=== PATIENT | male | born 1975 | race Hispanic/Latino ===

== ENCOUNTER 2020-05-05 10:44 | Emergency (ER) | payer OTHER ==
[~2020-05-05 10:44] MED LIST: ALPR2TAB2 PO; LISI30TA4 PO; METF-444 PO; ROSU10TA22 PO
[2020-05-05] MEDS ORDERED: ASPIRIN 325 MG TABLET ONE (11:04)
[2020-05-05 11:15] LABS: BASOPHILS % (AUTO) 0.3 % (0.0-5.0); EOSINOPHILS % (AUTO) 0.8 % (0.0-8.0); HEMATOCRIT 52.2 % (42-54); LYMPHOCYTES % (AUTO) 23.3 % (21.0-51.0); MEAN CORPUSCULAR HEMOGLOBIN 30.5 pg (27.0-33.0); MEAN CORPUSCULAR HGB CONC 36.4 g/dL (32.0-36.0); MEAN CORPUSCULAR VOLUME 83.9 fL (79-99); MONOCYTES % (AUTO) 7.4 % (3.0-13.0); NEUTROPHILS % (AUTO) 67.8 % (40.0-77.0); PLATELET COUNT (AUTO) 204 K/uL (130-400); RED BLOOD CELL COUNT(AUTO) 6.22 MIL/uL (4.50-6.20); RED CELL DISTRIBUTION WIDTH 13.2 % (11.0-15.5); WHITE BLOOD COUNT (AUTO) 7.9 K/uL (4.8-10.8)
[2020-05-05 11:24] LABS: CREATININE 0.7 mg/dL (0.5-1.5); POTASSIUM 3.5 mmol/L (3.5-5.1)
[2020-05-05 11:28] LABS: BILIRUBIN,TOTAL 1.1 mg/dL (0.2-1.0); TOTAL PROTEIN, SERUM 7.6 g/dL (6.0-8.3)
== END 2020-05-05 11:53 ==
LOC: EEVIPCON 10:44 → EDH 10:44
DX: R07.89 Other chest pain (principal); I50.9 Heart failure, unspecified; F41.9 Anxiety disorder, unspecified; E11.9 Type 2 diabetes mellitus without complications; E78.5 Hyperlipidemia, unspecified; I10 Essential (primary) hypertension; Z72.0 Tobacco use
CPT/HCPCS: 36415; 71045; 80053; 82550; 84484; 85025; 93005

== ENCOUNTER 2022-05-15 19:47 | Emergency (ER) | payer OTHER ==
[~2022-05-15] VITALS: Ht 177.8 cm; Wt 73.9 kg
[2022-05-15 20:20] VITALS: BP 102/66
== END 2022-05-15 21:16 | disposition left against medical advice (07) ==
LOC: EDH 19:47
DX: M25.511 Pain in right shoulder (principal); Z53.21 Procedure and treatment not carried out due to patient leaving prior to being seen by health care provider

== ENCOUNTER 2024-07-01 00:59 | Emergency (ER) | payer BC ==
[~2024-07-01] VITALS: Ht 177.8 cm; Wt 74.8 kg
[2024-07-01] MEDS: ketOROlac 30MG VIAL (30MG/ML) IM ONE (01:32)
--- NOTE | 2024-07-01 01:37 | ERN ---
ED Note History of Present Illness Stated Complaint: C/O PAIN W/SWELLING TO LEFT 2ND TOE Chief Complaint: Toe Pain/Injury Time Seen by MD: 01:10 Time Seen by Midlevel: 01:10 Dictation: The patient is a 49-year-old male with a history of diabetes on metformin, hypertension, CAD with two stents who presents to the emergency department with complaints of left 2nd toe redness onset one month ago. Patient denies any trauma. Denies any fevers. Allergies: Coded Allergies: No Known Drug Allergies (Verified Allergy, 03/16/12) Home Meds Reported Medications Alprazolam (Xanax) 2 Mg Tablet, 2 MG PO TID, TAB 11/11/14 Lisinopril (Lisinopril) 30 Mg Tablet, 30 MG PO DAILY, TAB 11/11/14 Rosuvastatin Calcium (Crestor) 10 Mg Tablet, 10 MG PO DAILY, TAB 11/11/14 Metformin HCl (Metformin HCl) 500 Mg Tablet, 500 MG PO BID, TAB 11/11/14 Past Medical History Past Medical History: Diabetes-Type II, High Cholesterol, Heart Disease, Hypertension Surgical History: Other Surgical History Other: CARDIAC STENTS (2014) RN Note Reviewed/Agreed w/PFSH: Yes Review of System Dictation Constitutional: Negative for fever,chills, and weight loss Eyes: Negative for injury, pain,redness, and discharge ENT: Negative for injury,pain or swelling Cardiovascular: Negative for chest pain, palpitations, and edema Respiratory: Negative for shortness of breath, cough, and wheezing, Abdomen/GI: Negative for abdominal pain, nausea, vomiting, diarrhea, and constipation Back: Negative for injury and pain : Negative for injury, bleeding and discharge MS/Extremity: Positive for left 2nd toe pain, redness Skin: Negative for rash, and discoloration Neuro: Negative for headache, weakness, numbness, tingling, and seizure Psych: Negative for suicide ideation, homicidal ideation, and hallucinations Initial Vital Sign VS Vital Signs Date Time Temp Pulse Resp B/P (MAP) Pulse Ox O2 Delivery O2 Flow Rate FiO2 07/01/24 01:00 97.5 71 18 130/83 97 Room Air Physical Exam Dictation Vital Signs reviewed General Appearance: Alert, oriented x 3, no acute distress, well developed, nourished. Head and Face: non-traumatic. Eyes: PERRL, pink conjunctivas, eyelid no trauma, anterior chamber with arcus senilis. Ears: Pinnas intact and no signs of trauma or erythema ear canals clear and no discharge TM no erythema Nose: No discharge, no bleeding. Oropharynx: Mouth normal, tongue pink. pharynx clear,no erythema, tonsils no exudates, no abscesses noted, mucous membrane moist Neck: Supple, non-tender, no thyromegaly, no masses, no JVD, no bruits Breast:Deferred Chest:No tenderness, no crepitus, no paradoxical movement, no retractions Lungs:Clear, well-ventilated, symmetric, no rales, no wheezing, no rhonchi, no stridor, good breath sounds bilaterally Heart: Regular rate, regular rhythm, no murmur, no gallops Vascular: no peripheral edema, Abdomen: Soft, positive bowel sounds, nondistended, no guarding, nontender, no rebound, no masses no hepatomegaly, no splenomegaly, no Meek's sign, no hernias. Rectal: Deferred Genital: Deferred Neurological: Normal speech, motor function intact, sensory function intact Musculoskeletal: Neck nontender, full range of motion, back nontender, full range of motion, Extremities: nontender, full range of motion , left 2nd toe with erythema, no deformities, tender to touch, warmth Skin: Color pink, dry, no turgor, no rash, no lacerations, no abrasions, no contusions. Diabetic ulcer noted to second left toe about1 cm in diameter, no drainage Lymphatic: Deferred Results (Laboratory/Radiology) Laboratory/Radiology Laboratory Tests Test 07/01/24 01:44 White Blood Count 5.9 K/uL (4.8-10.8) Red Blood Count 5.48 MIL/uL (4.50-6.20) Hemoglobin 16.1 g/dL (14.0-18.0) Hematocrit 45.8 % (42-54) Mean Corpuscular Volume 83.6 fL (79-99) Mean Corpuscular Hemoglobin 29.4 pg (27.0-33.0) Mean Corpuscular Hemoglobin Concent 35.2 g/dL (32.0-36.0) Red Cell Distribution Width 12.7 % (11.0-15.5) Platelet Count 202 K/uL (130-400) Mean Platelet Volume 8.9 fL (7.5-10.5) Immature Granulocyte % (Auto) 0.0 % (0-1) Neutrophils (%) (Auto) 57.9 % (40.0-77.0) Lymphocytes (%) (Auto) 33.8 % (21.0-51.0) Monocytes (%) (Auto) 7.1 % (3.0-13.0) Eosinophils (%) (Auto) 1.0 % (0.0-8.0) Basophils (%) (Auto) 0.2 % (0.0-5.0) Neutrophils # (Auto) 3.4 K/uL (1.8-7.7) Lymphocytes # (Auto) 2.0 K/uL (1.0-4.8) Monocytes # (Auto) 0.4 K/uL (0.1-1.0) Eosinophils # (Auto) 0.06 K/uL (0.00-0.70) Basophils # (Auto) 0.01 K/uL (0.00-0.20) Absolute Immature Granulocyte (auto 0.00 K/uL (0-1) Nucleated Red Blood Cells 0.0 % (0.0-0.19) Erythrocyte Sedimentation Rate 2 MM/HR (0-20) Sodium Level 137 mmol/L (136-145) Potassium Level 3.8 mmol/L (3.5-5.1) Chloride Level 102 mmol/L (101-111) Carbon Dioxide Level 31 mmol/L (21-32) Blood Urea Nitrogen 12 mg/dL (7-18) Creatinine 0.6 mg/dL (0.5-1.3) Glomerular Filtration Rate Calc 118 mL/min (>90) Random Glucose 298 mg/dL (70-105) H Total Calcium 8.6 mg/dL (8.5-10.1) Labs Reviewed?: Yes ED Course ED Course Orders Procedure Category Date Status Time Toe(S) 2+Vws Lt RAD 07/01/24 Taken 01:14 Cbc With Differential LAB 07/01/24 Complete 01:14 Basic Metabolic Panel LAB 07/01/24 Complete 01:14 Erythrocyte LAB 07/01/24 Complete Sedimentation Rate 01:14 Ketorolac PHA 07/01/24 Complete Tromethamine 30mg/Ml 01:30 Insulin Regular, PHA 07/01/24 Complete Human 3ml (Humulin R 02:30 Current Medications Medications (Trade) Dose Ordered Sig/Flores Route PRN Reason Start Time Stop Time Status Last Admin Dose Admin Insulin Human Regular (humuLIN R 100 UNIT/ML 3ML) 7 unit ONCE ONCE SQ 07/01/24 02:30 07/01/24 02:31 DC Ketorolac Tromethamine (toRADol) 30 mg ONCE ONCE IM 07/01/24 01:30 07/01/24 01:31 DC 07/01/24 01:32 Vital Signs Date Time Temp Pulse Resp B/P (MAP) Pulse Ox O2 Delivery O2 Flow Rate FiO2 07/01/24 01:00 97.5 71 18 130/83 97 Room Air Medical Decision Making MDM The patient is a 49-year-old male with a history of diabetes on metformin, hypertension, CAD with two stents who presents to the emergency department with complaints of left 2nd toe redness onset one month ago. Patient denies any trauma. Denies any fevers. CBC showed no leukocytosis, no anemia, chemistry showed normal renal function, e levated blood glucose, not DKA. Patient received subcu insulin. Negative sed rate. X-ray reviewed with Dr. Daniels and showed no obvious fracture or dislocation, no obvious signs of osteomyelitis. Patient will be discharged with antibiotics to follow up with PCP. Differential diagnosis: Cellulitis, osteomyelitis, electrolyte imbalance, sepsis Need for hospitalization: Patient does not meet criteria for hospitalization. There are no social concerns with this patient. DX & DISP Disposition: Discharge Departure Impression: Primary Impression: Cellulitis of second toe, left Additional Impressions: Diabetic ulcer of toe, Uncontrolled diabetes mellitus with hyperglycemia Condition: Stable Scripts Sulfamethoxazole/Trimethoprim (Bactrim Ds Tablet) 800 Mg-160 Mg Tablet 1 TAB PO BID for 7 Days, #14 TAB 0 Refills Prov: CHUN NAVARRO [employer] 07/01/24 Additional Instructions: Please follow up with your primary doctor in 1-2 days. You might need a referral to a cra officer. Please take your antibiotics as prescribed. If symptoms worsen please return to ER. FOLLOW-UP WITH PRIMARY CARE PROVIDER IN 1 TO 2 DAYS. TAKE MEDICATIONS DIRECTED HERE IN THE EMERGENCY ROOM. OKAY TO CONTINUE HOME MEDICATIONS UNLESS OTHERWISE DISCUSSED DURING YOUR VISIT IN THE EMERGENCY ROOM TODAY. RETURN TO YOUR NEAREST EMERGENCY ROOM IF SYMPTOMS WORSEN OR IF THERE IS NO IMPROVEMENT. CALL 911 IF YOU NEED IMMEDIATE ASSISTANCE. TAKE TYLENOL OR MOTRIN [id number] NEEDED AND IF NO CONTRAINDICATIONS ARE PRESENT. INCREASE ORAL HYDRATION. A WOUND CULTURE OR URINE CULTURE WAS ORDERED HERE IN THE EMERGENCY ROOM DEPARTMENT PLEASE FOLLOW-UP WITH PRIMARY CARE PROVIDER AND ADVISE THEM TO GET REPEAT PORTS FROM OUR FACILITY. IF YOU HAD ANY ROD WRAP/SPLINTS THAT WERE APPLIED HERE, PLEASE DO NOT REMOVE THEM UNTIL YOU SEE YOUR PRIMARY CARE OR SPECIALTY. Referrals: LONDON ST MD (PCP) Time of Disposition: 03:09 I have reviewed the case, and I agree with, Diagnosis and Plan CHUN NAVARRO [facility] Jul 01, 2024 01:37
[2024-07-01 01:52] LABS: BASOPHILS # (AUTO) 0.01 K/uL (0.00-0.20); BASOPHILS % (AUTO) 0.2 % (0.0-5.0); EOSINOPHILS # (AUTO) 0.06 K/uL (0.00-0.70); HEMATOCRIT 45.8 % (42-54); LYMPHOCYTES % (AUTO) 33.8 % (21.0-51.0); MEAN CORPUSCULAR HEMOGLOBIN 29.4 pg (27.0-33.0); MEAN CORPUSCULAR HGB CONC 35.2 g/dL (32.0-36.0); MEAN CORPUSCULAR VOLUME 83.6 fL (79-99); MONOCYTES # (AUTO) 0.4 K/uL (0.1-1.0); MONOCYTES % (AUTO) 7.1 % (3.0-13.0); NEUTROPHILS # (AUTO) 3.4 K/uL (1.8-7.7); NEUTROPHILS % (AUTO) 57.9 % (40.0-77.0); PLATELET COUNT (AUTO) 202 K/uL (130-400); RED BLOOD CELL COUNT(AUTO) 5.48 MIL/uL (4.50-6.20); RED CELL DISTRIBUTION WIDTH 12.7 % (11.0-15.5); WHITE BLOOD COUNT (AUTO) 5.9 K/uL (4.8-10.8)
[2024-07-01 01:59] LABS: CREATININE 0.6 mg/dL (0.5-1.3); POTASSIUM 3.8 mmol/L (3.5-5.1)
[2024-07-01 03:07] LABS: ERYTHROCYTE SEDIMENTATION RATE 2 MM/HR (0-20)
[2024-07-01] MEDS ORDERED: SULF1TAB42 PO (03:12)
[2024-07-01] MEDS: cefTRIAXone 1G VIAL IV ONE (03:17)
[2024-07-01] MEDS: INSULIN humuLIN R 100 UNIT/ML 3ML SQ ONE (03:17)
[2024-07-01 03:39] VITALS: BP 126/78; PULSE 68; RESP 16; TEMP 97.8; O2SAT 98
--- NOTE | 2024-07-01 09:23 | HMCIMG ---
TOE(S) 2+VWS LT HISTORY: Cellulitis COMPARISON: None TECHNIQUE: 3 images of left second toe were obtained. FINDINGS: Soft tissue swelling is seen may be related to cellulitis. There is subluxation of the second distal interphalangeal joint. There is no acute displaced fracture or dislocation. Degenerative changes are seen. IMPRESSION: 1. Findings as described above.
== END 2024-07-01 03:41 | disposition home or self-care (01) ==
LOC: EDH 00:59
DX: L03.032 Cellulitis of left toe (principal); E11.621 Type 2 diabetes mellitus with foot ulcer; L97.529 Non-pressure chronic ulcer of other part of left foot with unspecified severity; E11.65 Type 2 diabetes mellitus with hyperglycemia; E78.00 Pure hypercholesterolemia, unspecified; I10 Essential (primary) hypertension; Z79.84 Long term (current) use of oral hypoglycemic drugs; Z79.899 Other long term (current) drug therapy; Z95.5 Presence of coronary angioplasty implant and graft
CPT/HCPCS: 99284; 96374; 80048; 85025; 85651; 36415; 73660; 96372 ×2; J1815; J0696; J1885

== ENCOUNTER 2024-09-07 00:26 | Emergency (ER) | payer SELFPAY ==
[~2024-09-07] VITALS: Ht 177.8 cm; Wt 83.0 kg
[~2024-09-07 00:26] MED LIST changes: +SULF1TAB42 PO
--- NOTE | 2024-09-07 01:32 | HMCIMG ---
FOOT COMP 3+VWS LT HISTORY: Osteomyelitis COMPARISON: None TECHNIQUE: 3 images of left foot were obtained. FINDINGS: Metatarsus valgus deformity is seen of the first toe. Amputation of second toe is seen. There is no acute displaced fracture or dislocation. Degenerative changes are seen. IMPRESSION: 1. Findings as described above.
[2024-09-07 01:54] LABS: BASOPHILS # (AUTO) 0.01 K/uL (0.00-0.20); BASOPHILS % (AUTO) 0.1 % (0.0-5.0); EOSINOPHILS # (AUTO) 0.24 K/uL (0.00-0.70); EOSINOPHILS % (AUTO) 3.3 % (0.0-8.0); HEMATOCRIT 41.3 % (42-54); IMMATURE GRANULOCYTE ABSOLUTE 0.02 K/uL (0-1); LYMPHOCYTES # (AUTO) 2.7 K/uL (1.0-4.8); LYMPHOCYTES % (AUTO) 36.6 % (21.0-51.0); MEAN CORPUSCULAR HEMOGLOBIN 29.9 pg (27.0-33.0); MEAN CORPUSCULAR HGB CONC 35.4 g/dL (32.0-36.0); MEAN CORPUSCULAR VOLUME 84.5 fL (79-99); MONOCYTES # (AUTO) 0.6 K/uL (0.1-1.0); MONOCYTES % (AUTO) 7.5 % (3.0-13.0); NEUTROPHILS # (AUTO) 3.9 K/uL (1.8-7.7); NEUTROPHILS % (AUTO) 52.2 % (40.0-77.0); PLATELET COUNT (AUTO) 220 K/uL (130-400); RED BLOOD CELL COUNT(AUTO) 4.89 MIL/uL (4.50-6.20); RED CELL DISTRIBUTION WIDTH 13.1 % (11.0-15.5); WHITE BLOOD COUNT (AUTO) 7.4 K/uL (4.8-10.8)
[2024-09-07 02:02] LABS: CREATININE 0.7 mg/dL (0.5-1.3); POTASSIUM 4.4 mmol/L (3.5-5.1)
[2024-09-07] MEDS: ketOROlac 15MG/ML VIAL (15MG/ML) IV ONE (02:33)
[2024-09-07] MEDS: cefTRIAXone 1G VIAL IVPB ONE (02:33)
[2024-09-07] MEDS: INSULIN humuLIN R 100 UNIT/ML 3ML IV ONE (02:34)
[2024-09-07] MEDS: 0.9%NACL 1000ML 1,000 ML IV ONE (02:34)
[2024-09-07 03:13] LABS: ERYTHROCYTE SEDIMENTATION RATE 9 MM/HR (0-20)
[2024-09-07] MEDS ORDERED: SULF1TAB42 PO (03:24)
--- NOTE | 2024-09-07 03:25 | ERN ---
General Chief Complaint: Lower Extremity Pain/Injury Stated Complaint: C/O PAIN AND SWELLING TO LEFT FOOT Time Seen by MD: 00:44 Time Seen by Midlevel: 00:44 Source: patient History of Present Illness Initial Comments Patient is a 49-year-old male with a past medical history of uncontrolled diabetes and hypertension presenting to the emergency department with pain and swelling to his left foot that has been ongoing for the last couple of days but worsened today. Patient reports having a 2nd toe amputation of the left foot on July 20, 2024. He denies any fever, chills, or any other symptoms at this time. He states his fasting blood sugar is over 200 normally. He was supposed to be taking medications for his diabetes but states he was noncompliant. Patient gives no reason for his noncompliance. Allergies: Coded Allergies: No Known Drug Allergies (Verified Allergy, 03/16/12) Home Meds Active Scripts Sulfamethoxazole/Trimethoprim (Bactrim Ds Tablet) 800 Mg-160 Mg Tablet, 1 TAB PO BID for 7 Days, #14 TAB 0 Refills Prov:GORDON AGUILA 09/07/24 Sulfamethoxazole/Trimethoprim (Bactrim Ds Tablet) 800 Mg-160 Mg Tablet, 1 TAB PO BID for 7 Days, #14 TAB 0 Refills Prov:CHUN NAVARRO 07/01/24 Reported Medications Alprazolam (Xanax) 2 Mg Tablet, 2 MG PO TID, TAB 11/11/14 Lisinopril (Lisinopril) 30 Mg Tablet, 30 MG PO DAILY, TAB 11/11/14 Rosuvastatin Calcium (Crestor) 10 Mg Tablet, 10 MG PO DAILY, TAB 11/11/14 Metformin HCl (Metformin HCl) 500 Mg Tablet, 500 MG PO BID, TAB 11/11/14 Past Medical History Past Medical History: Diabetes-Type II, High Cholesterol, Heart Disease, Hypertension Past Surgical History: Other Surgical History Other: LEFT FOOT 2ND TOE AMPUTATION (07/20/2024) ROS Dictation CONSTITUTIONAL: Negative except for HPI HEAD/FACE: Negative except for HPI EENT: Negative except for HPI RESPIRATORY: Negative except for HPI GASTROINTESTINAL/ABDOMINAL: Negative except for HPI GENITOURINARY: Negative except for HPI MUSCULOSKELETAL: Negative except for HPI INTEGUMENTARY: Negative except for HPI NEUROLOGICAL/PSYCH: Negative except for HPI HEMATOLOGIC/LYMPHATIC: Negative except for HPI All Systems Negative, Except as noted above. 13 point review of systems assessed and all negative except for above. Physical Exam Physical Exam Dictation Vital Signs reviewed General Appearance: Alert, oriented x 3, no acute distress, well developed, nourished. Head and Face: non-traumatic. Eyes: PERRL, pink conjunctivas, eyelid no trauma, anterior chamber with arcus senilis. Ears: Pinnas intact and no signs of trauma or erythema ear canals clear and no discharge TM no erythema Nose: No discharge, no bleeding. Oropharynx: Mouth normal, tongue pink, pharynx clear,no erythema, tonsils no exudates, no abscesses noted, mucous membrane moist Neck: Supple, non-tender, no thyromegaly, no masses, no JVD, no bruits Breast:Deferred Chest:No tenderness, no crepitus, no paradoxical movement, no retractions Lungs:Clear, well-ventilated, symmetric, no rales, no wheezing, no rhonchi, no stridor, good breath sounds bilaterally Heart: Regular rate, regular rhythm, no murmur, no gallops Vascular: no peripheral edema, Abdomen: Soft, positive bowel sounds, nondistended, no guarding, nontender, no rebound, no masses no hepatomegaly, no splenomegaly, no Meek's sign, no hernias. Rectal: Deferred Genital: Deferred Neurological: Normal speech, motor function intact, sensory function intact Musculoskeletal: Neck nontender, full range of motion, back nontender, full range of motion, Extremities: Mild swelling and erythema to the left foot, pulses intact, no drainable abscess at this time Skin: Color pink, dry, no turgor, no rash, no lacerations, no abrasions, no contusions. Lymphatic: Deferred Results Laboratory and Microbiology Lab and Micro Result Laboratory Tests Test 09/07/24 01:33 09/07/24 02:58 White Blood Count 7.4 K/uL (4.8-10.8) Red Blood Count 4.89 MIL/uL (4.50-6.20) Hemoglobin 14.6 g/dL (14.0-18.0) Hematocrit 41.3 % (42-54) L Mean Corpuscular Volume 84.5 fL (79-99) Mean Corpuscular Hemoglobin 29.9 pg (27.0-33.0) Mean Corpuscular Hemoglobin Concent 35.4 g/dL (32.0-36.0) Red Cell Distribution Width 13.1 % (11.0-15.5) Platelet Count 220 K/uL (130-400) Mean Platelet Volume 8.9 fL (7.5-10.5) Immature Granulocyte % (Auto) 0.3 % (0-1) Neutrophils (%) (Auto) 52.2 % (40.0-77.0) Lymphocytes (%) (Auto) 36.6 % (21.0-51.0) Monocytes (%) (Auto) 7.5 % (3.0-13.0) Eosinophils (%) (Auto) 3.3 % (0.0-8.0) Basophils (%) (Auto) 0.1 % (0.0-5.0) Neutrophils # (Auto) 3.9 K/uL (1.8-7.7) Lymphocytes # (Auto) 2.7 K/uL (1.0-4.8) Monocytes # (Auto) 0.6 K/uL (0.1-1.0) Eosinophils # (Auto) 0.24 K/uL (0.00-0.70) Basophils # (Auto) 0.01 K/uL (0.00-0.20) Absolute Immature Granulocyte (auto 0.02 K/uL (0-1) Nucleated Red Blood Cells 0.0 % (0.0-0.19) Erythrocyte Sedimentation Rate 9 MM/HR (0-20) Sodium Level 139 mmol/L (136-145) Potassium Level 4.4 mmol/L (3.5-5.1) Chloride Level 102 mmol/L (101-111) Carbon Dioxide Level 31 mmol/L (21-32) Blood Urea Nitrogen 12 mg/dL (7-18) Creatinine 0.7 mg/dL (0.5-1.3) Glomerular Filtration Rate Calc 112 mL/min (>90) Random Glucose 376 mg/dL (70-105) H Lactic Acid Level 1.8 mmol/L (0.8-2.5) Total Calcium 8.8 mg/dL (8.5-10.1) Procalcitonin < 0.05 ng/mL (0.05-0.5) L Whole Blood Glucose 182 MG/DL (70-110) H Bedside Glucose Comment Notified Nurse Labs Reviewed?: Yes MDM MDM: Patient is a 49-year-old male with a past medical history of uncontrolled diabetes and hypertension presenting to the emergency department with pain and swelling to his left foot that has been ongoing for the last couple of days but worsened today. Patient reports having a 2nd toe amputation of the left foot on July 20, 2024. He denies any fever, chills, or any other symptoms at this time. He states his fasting blood sugar is over 200 normally. He was supposed to be taking medications for his diabetes but states he was noncompliant. Patient gives no reason for his noncompliance. Physical examination the patient was in no acute distress. Initial vital signs are stable. Patient is afebrile. There is some mild amount of swelling to the dorsal aspect of the left foot. There is small amounts of erythema. Foot is warm to touch. It appears the patient may be developing a cellulitis. His CBC was obtained which shows no leukocytosis. Chemistries are stable but do reveal a random glucose of 376. The patient was given IV fluids and 5 units of regular insulin. Blood glucose improved to 182. Lactic acid and procalcitonin are negative. Sed rate is normal. X-ray does not show any evidence of osteomyelitis or any other acute abnormality. Patient was given antibiotics and pain medication in the emergency department and will be discharged home prescription for Bactrim to prevent a worsening cellulitis. Differential diagnosis: Uncontrolled diabetes, DKA, cellulitis, osteomyelitis There are no social concerns with this patient. Prescription drug management Prescriptions will include: Bactrim Medical management and examination interpretation discussions were had by me with other qualified healthcare professionals as indicated for the patient's care. ED Course Orders Procedure Category Date Status Time Cbc With Differential LAB 09/07/24 Complete 00:44 Basic Metabolic Panel LAB 09/07/24 Complete 00:44 Erythrocyte LAB 09/07/24 Complete Sedimentation Rate 00:44 Procalcitonin LAB 09/07/24 Complete 00:44 Lactic Acid LAB 09/07/24 Complete 00:44 Foot Comp 3+Vws Lt RAD 09/07/24 Resulted 00:44 0.9%Nacl 1000ml (Ns PHA 09/07/24 Complete 1000ml) 02:30 Insulin Regular, PHA 09/07/24 Complete Human 3ml (Humulin R 02:30 Ceftriaxone 1g Vial PHA 09/07/24 Complete (Rocephine 1g Inj) 02:30 Ketorolac PHA 09/07/24 Complete Tromethamine 15mg/Ml 02:30 Current Medications Medications (Trade) Dose Ordered Sig/Flores Route PRN Reason Start Time Stop Time Status Last Admin Dose Admin Ceftriaxone Sodium (ROCEphine 1G INJ) 1 gm ONCE ONCE IVPB 09/07/24 02:30 09/07/24 02:31 DC 09/07/24 02:33 Insulin Human Regular (humuLIN R 100 UNIT/ML 3ML) 5 unit ONCE ONCE IV 09/07/24 02:30 09/07/24 02:31 DC 09/07/24 02:34 Ketorolac Tromethamine (toRADol) 15 mg ONCE ONCE IV 09/07/24 02:30 09/07/24 02:31 DC 09/07/24 02:33 Sodium Chloride 1,000 ml @ 0 mls/hr ONCE ONCE IV 09/07/24 02:30 09/07/24 02:31 DC 09/07/24 02:34 Vital Signs Date Time Temp Pulse Resp B/P (MAP) Pulse Ox O2 Delivery O2 Flow Rate FiO2 09/07/24 02:27 98.1 75 18 117/65 99 Room Air* 0 21 09/07/24 00:28 97.9 72 20 117/83 96 [address] [id number] IMAGING REPORT Signed PATIENT: BRUCE MCGEE MR#: [id number] : 1975 SEX: M AGE: 49 LOCATION: [facility] ORDER STATUS: REG ER REPORT#: [id number] SERVICE [id number] REASON: r/o osteo ORDERING PHYSICIAN: GORDON AGUILA PROCEDURE: FT 3VW LT - FOOT COMP 3+VWS LT FOOT COMP 3+VWS LT HISTORY: Osteomyelitis COMPARISON: None TECHNIQUE: 3 images of left foot were obtained. FINDINGS: Metatarsus valgus deformity is seen of the first toe. Amputation of second toe is seen. There is no acute displaced fracture or dislocation. Degenerative changes are seen. IMPRESSION: 1. Findings as described above. DICTATED BY: MIGUEL DE LA VEGA MD DATE: 09/07/24127 ELECTRONICALLY SIGNED BY: MIGUEL DE LA VEGA MD DATE: 09/07/24 0132 DX & DISP Disposition: Discharge Departure Impression: Primary Impression: Uncontrolled diabetes mellitus with hyperglycemia Additional Impression: Cellulitis of left foot Condition: Stable Scripts Sulfamethoxazole/Trimethoprim (Bactrim Ds Tablet) 800 Mg-160 Mg Tablet 1 TAB PO BID for 7 Days, #14 TAB 0 Refills Prov: GORDON AGUILA 09/07/24 Additional Instructions: Your blood work today is stable. Your blood glucose was over 350. It appears you may be starting an infection in your left foot. You were given IV antibiotics and pain medication in the emergency department. Your sugar was also controlled in the emergency department. I have given you a prescription for antibiotics for outpatient management. If you notice an increase in redness, swelling, and pain to the area please follow up with your primary care doctor or return to the ER further evaluation. Referrals: LONDON ST MD (PCP) Time of Disposition: 03:23 I have reviewed the case, and I agree with, Diagnosis and Plan I performed the substantive portion of the visit. I have reviewed and personally made and approve the management plan that is documented in the note by myself or the VIV. I acknowledge for responsibility for the patient's management plan. GORDON AGUILA Sep 07, 2024 03:25
[2024-09-07 03:32] VITALS: BP 121/65; PULSE 72; RESP 18; TEMP 98.5; O2SAT 96
== END 2024-09-07 03:33 | disposition home or self-care (01) ==
LOC: EDH 00:26
DX: L03.116 Cellulitis of left lower limb (principal); E11.65 Type 2 diabetes mellitus with hyperglycemia; E78.00 Pure hypercholesterolemia, unspecified; I11.9 Hypertensive heart disease without heart failure; Z79.84 Long term (current) use of oral hypoglycemic drugs; Z79.899 Other long term (current) drug therapy; Z98.890 Other specified postprocedural states
CPT/HCPCS: 99284; 96365; 96375; 80048; 85025; 85651; 82948; 83605; 36415; 73630; 84145; J1815; J1885; J7030; J0696

== ENCOUNTER 2024-09-11 11:17 | Emergency (ER) | payer OTHER ==
[~2024-09-11] VITALS: Ht 177.8 cm; Wt 83.9 kg
[2024-09-11 11:45] LABS: BASOPHILS # (AUTO) 0.01 K/uL (0.00-0.20); BASOPHILS % (AUTO) 0.2 % (0.0-5.0); EOSINOPHILS # (AUTO) 0.06 K/uL (0.00-0.70); EOSINOPHILS % (AUTO) 1.2 % (0.0-8.0); HEMATOCRIT 43.4 % (42-54); IMMATURE GRANULOCYTE ABSOLUTE 0.01 K/uL (0-1); LYMPHOCYTES # (AUTO) 1.5 K/uL (1.0-4.8); LYMPHOCYTES % (AUTO) 31.2 % (21.0-51.0); MEAN CORPUSCULAR HEMOGLOBIN 29.3 pg (27.0-33.0); MEAN CORPUSCULAR HGB CONC 34.8 g/dL (32.0-36.0); MEAN CORPUSCULAR VOLUME 84.1 fL (79-99); MONOCYTES # (AUTO) 0.3 K/uL (0.1-1.0); MONOCYTES % (AUTO) 6.9 % (3.0-13.0); NEUTROPHILS # (AUTO) 2.9 K/uL (1.8-7.7); NEUTROPHILS % (AUTO) 60.3 % (40.0-77.0); PLATELET COUNT (AUTO) 206 K/uL (130-400); RED BLOOD CELL COUNT(AUTO) 5.16 MIL/uL (4.50-6.20); RED CELL DISTRIBUTION WIDTH 13.2 % (11.0-15.5); WHITE BLOOD COUNT (AUTO) 4.8 K/uL (4.8-10.8)
--- NOTE | 2024-09-11 11:46 | ERN ---
General Chief Complaint: Abdominal Pain Stated Complaint: NVD Time Seen by MD: 11:19 Source: patient History of Present Illness Initial Comments Patient is a 49-year-old male coming in to be evaluated for discomfort. Patient states the symptoms began a couple of days ago. He also states that he has a history of cardiac issues in the past. Allergies: Coded Allergies: No Known Drug Allergies (Verified Allergy, 03/16/12) Home Meds Active Scripts Sulfamethoxazole/Trimethoprim (Bactrim Ds Tablet) 800 Mg-160 Mg Tablet, 1 TAB PO BID for 7 Days, #14 TAB 0 Refills Prov:GORDON AGUILA 09/07/24 Sulfamethoxazole/Trimethoprim (Bactrim Ds Tablet) 800 Mg-160 Mg Tablet, 1 TAB PO BID for 7 Days, #14 TAB 0 Refills Prov:CHUN NAVARRO H[employer] D[employer]ESS FEEDER 07/01/24 Reported Medications Alprazolam (Xanax) 2 Mg Tablet, 2 MG PO TID, TAB 11/11/14 Lisinopril (Lisinopril) 30 Mg Tablet, 30 MG PO DAILY, TAB 11/11/14 Rosuvastatin Calcium (Crestor) 10 Mg Tablet, 10 MG PO DAILY, TAB 11/11/14 Metformin HCl (Metformin HCl) 500 Mg Tablet, 500 MG PO BID, TAB 11/11/14 Past Medical History Past Medical History: CAD, Diabetes-Type II, High Cholesterol, Heart Disease, Hypertension Past Surgical History: Other Surgical History Other: LEFT FOOT 2ND TOE AMPUTATION (07/20/2024) ROS Dictation CONSTITUTIONAL: No chills, no fever, no weakness, no diaphoresis, no malaise. HEAD/FACE: No signs of trauma. EENT: No eye pain, no blurred vision, no tearing, no double vision, no ear pain, no ear discharge, no nose pain, no nasal congestion, no throat pain, no throat swelling, no mouth pain. RESPIRATORY: No cough, no orthopnea, no SOB, no stridor, no wheezing. CARDIOVASCULAR: No chest pain, no edema, no palpitations, no syncope. GASTROINTESTINAL/ABDOMINAL: No abdominal pain, no constipation, no diarrhea, no nausea, no vomiting. GENITOURINARY: No abnormal discharge, no dysuria, no frequent urination, no hematuria. No complaints of pain in the genitals. MUSCULOSKELETAL: No back pain, no gout, no joint pain, no joint swelling, no muscle pain, no muscle stiffness, no neck pain. INTEGUMENTARY: No change in color, no change in hair/nails, no dryness, no lesion, no lumps, no rash. NEUROLOGICAL/PSYCH: No anxiety, not depressed, no emotional problem, no headache, no numbness, no pre-existing deficit, no history of seizures, no tremors, no weakness. HEMATOLOGIC/LYMPHATIC: Not anemic, no history of blood clots, no apparent bleeding, no bruising, glands not swollen. All Systems Negative, Except as Noted. Physical Exam Physical Exam Dictation VITAL SIGNS: Reviewed. GENERAL APPEARANCE: Alert, oriented x3, no acute distress, obese. HEAD AND FACE: Non-traumatic. EYES: PERRL, pink conjunctivas, eyelid no trauma, anterior chamber clear. EARS: Pinnas intact and no signs of trauma or erythema. Ear canals clear and no discharge. TMs no erythema. NOSE: No discharge, no bleeding. OROPHARYNX: Mouth normal, teeth no caries, tongue pink. Pharynx clear, no erythema. Tonsils no exudates, no abscesses noted. Mucous membrane moist. NECK: Supple, non-tender, no thyromegaly, no masses, no JVD, no bruits. BREAST: Deferred. CHEST: No tenderness, no crepitus, no paradoxical movement, no retractions. LUNGS: Clear, well-ventilated, symmetric, no rales, no wheezing, no rhonchi, no stridor, good breath sounds bilaterally. HEART: Regular rate, regular rhythm, no murmur, no gallops. VASCULAR: No peripheral edema. ABDOMEN: Soft, positive bowel sounds, nondistended, no guarding, nontender, no rebound, no masses no hepatomegaly, no splenomegaly, no Meek's sign, no hernias. RECTAL: Deferred. GENITAL: Deferred. NEUROLOGICAL: Normal speech, gross motor function intact, gross sensory function intact. MUSCULOSKELETAL: Neck nontender, full range of motion, back nontender, full range of motion. EXTREMITIES: Nontender, full range of motion. SKIN: Color pink, dry, no turgor, no rash, no lacerations, no abrasions, no contusions. LYMPHATICS: Deferred. Results Laboratory and Microbiology Lab and Micro Result Laboratory Tests Test 09/11/24 11:37 09/11/24 12:50 White Blood Count 4.8 K/uL (4.8-10.8) Red Blood Count 5.16 MIL/uL (4.50-6.20) Hemoglobin 15.1 g/dL (14.0-18.0) Hematocrit 43.4 % (42-54) Mean Corpuscular Volume 84.1 fL (79-99) Mean Corpuscular Hemoglobin 29.3 pg (27.0-33.0) Mean Corpuscular Hemoglobin Concent 34.8 g/dL (32.0-36.0) Red Cell Distribution Width 13.2 % (11.0-15.5) Platelet Count 206 K/uL (130-400) Mean Platelet Volume 8.6 fL (7.5-10.5) Immature Granulocyte % (Auto) 0.2 % (0-1) Neutrophils (%) (Auto) 60.3 % (40.0-77.0) Lymphocytes (%) (Auto) 31.2 % (21.0-51.0) Monocytes (%) (Auto) 6.9 % (3.0-13.0) Eosinophils (%) (Auto) 1.2 % (0.0-8.0) Basophils (%) (Auto) 0.2 % (0.0-5.0) Neutrophils # (Auto) 2.9 K/uL (1.8-7.7) Lymphocytes # (Auto) 1.5 K/uL (1.0-4.8) Monocytes # (Auto) 0.3 K/uL (0.1-1.0) Eosinophils # (Auto) 0.06 K/uL (0.00-0.70) Basophils # (Auto) 0.01 K/uL (0.00-0.20) Absolute Immature Granulocyte (auto 0.01 K/uL (0-1) Nucleated Red Blood Cells 0.0 % (0.0-0.19) Prothrombin Time 11.4 SEC (9.6-11.6) Prothromb Time International Ratio 1.02 (0.85-1.15) Activated Partial Thromboplast Time 26.8 SEC (26.3-35.5) Sodium Level 142 mmol/L (136-145) Potassium Level 4.0 mmol/L (3.5-5.1) Chloride Level 103 mmol/L (101-111) Carbon Dioxide Level 33 mmol/L (21-32) H Blood Urea Nitrogen 14 mg/dL (7-18) Creatinine 0.8 mg/dL (0.5-1.3) Glomerular Filtration Rate Calc 108 mL/min (>90) Random Glucose 185 mg/dL (70-105) H Total Calcium 8.6 mg/dL (8.5-10.1) Magnesium Level 1.80 mg/dL (1.80-2.40) Total Creatine Kinase 74 U/L (21-232) Troponin I High Sensitivity 9 ng/L (4-75) B-Type Natriuretic Peptide 24 pg/mL (0-100) Urine Color YELLOW (YELLOW) Urine Appearance CLEAR (CLEAR) Urine pH 6.0 (5.0-8.0) Urine Specific [place] 1.030 (1.001-1.031) Urine Protein NEGATIVE mg/dL (NEGATIVE) Urine Glucose (UA) >=1000 mg/dL (NEGATIVE) H Urine Ketones NEGATIVE mg/dL (NEGATIVE) Urine Occult Blood NEGATIVE (NEGATIVE) Urine Nitrate NEGATIVE (NEGATIVE) Urine Bilirubin NEGATIVE mg/dL (NEGATIVE) Urine Urobilinogen 0.2 mg/dL (0.2-1.0) Urine Leukocyte Esterase 25 Merna/uL (NEGATIVE) H Urine RBC 0-1 /HPF (0-1) Urine WBC 2-5 /HPF (0-1) H Urine Squamous Epithelial Cells RARE /HPF (0-2) Urine Bacteria None /HPF (None Seen) Urine Opiates Screen NEGATIVE (NEGATIVE) Urine Barbiturates Screen NEGATIVE (NEGATIVE) Urine Phencyclidine Screen NEGATIVE (NEGATIVE) Urine Amphetamines Screen NEGATIVE (NEGATIVE) Urine Benzodiazepines Screen NEGATIVE (NEGATIVE) Urine Cocaine Screen POSITIVE (NEGATIVE) H Urine Marijuana (THC) Screen POSITIVE (NEGATIVE) H Labs Reviewed?: Yes EKG/XRAY/US/CT/MRI EKG Comment 09/11/2024 time 11:17 a.m. Ventricular rate 65 Sinus rhythm [place] [address] wave elevation or depression MDM MDM: Differential diagnosis: Chest pain, cocaine abuse, polysubstance abuse Patient is a 49-year-old male coming in to be evaluated for abdominal discomfort. Laboratory workup positive for cocaine and cannabis. Patient was given medication for chest discomfort states he feels better. Patient will be discharged in stable condition with a diagnosis of cocaine abuse. ED Course Orders Procedure Category Date Status Time 12 Lead Ekg Tracing- EKG 09/11/24 Complete Technical 11:18 Cbc With Differential LAB 09/11/24 Complete 11:21 Prothrombin Time With LAB 09/11/24 Complete INR 11:21 B-Type Natriuretic LAB 09/11/24 Complete Peptide 11:21 Chest 1vw RAD 09/11/24 Resulted 11:21 Magnesium LAB 09/11/24 Complete 11:21 Creatine Kinase, Total LAB 09/11/24 Complete 11:21 Troponin I High LAB 09/11/24 Complete Sensitivity 11:21 Urinalysis Profile LAB 09/11/24 Complete 11:21 Partial LAB 09/11/24 Complete Thromboplastin Time 11:21 Basic Metabolic Panel LAB 09/11/24 Complete 11:21 Aspirin 325mg Tab PHA 09/11/24 Complete (Aspirin 325mg Tab) 11:30 Drug Screen Urine LAB 09/11/24 Complete 11:21 Pantoprazole 40mg Inj PHA 09/11/24 Complete (Protonix 40mg Inj 11:30 Nitroglycerin 0.4mg PHA 09/11/24 In Process Sl Tab (Nitrostat) 13:00 Nitroglycerin 0.4mg PHA 09/11/24 Complete Sl Tab (Nitrostat) 12:48 Current Medications Medications (Trade) Dose Ordered Sig/Flores Route PRN Reason Start Time Stop Time Status Last Admin Dose Admin Aspirin (Aspirin 325mg Tab) 325 mg ONCE ONCE PO 09/11/24 11:30 09/11/24 11:31 DC 09/11/24 11:57 Nitroglycerin (Nitrostat) 0.4 mg AD PRN SL CHEST PAIN 09/11/24 13:00 10/11/24 12:59 09/11/24 12:57 Nitroglycerin (Nitrostat) 0.4 mg STK-MED ONCE SL 09/11/24 12:48 09/11/24 12:48 DC Pantoprazole Sodium (PROTonix 40MG INJ) 40 mg ONCE ONCE IVP 09/11/24 11:30 09/11/24 11:31 DC 09/11/24 11:57 Vital Signs Date Time Temp Pulse Resp B/P (MAP) Pulse Ox O2 Delivery O2 Flow Rate FiO2 09/11/24 12:58 99.0 72 16 114/73 99 Room Air* 0 21 09/11/24 11:19 99.0 75 16 121/73 98 Room Air 0 DX & DISP Disposition: Discharge Departure Impression: Primary Impression: Cocaine abuse Condition: Stable Additional Instructions: You have been reviewed in the emergency department at [facility] after presenting with chest pain. After considering your history, your risk factors, your EKG and your blood test troponins, have been found to be at very low risk less than (1 in 100) of having a major adverse cardiac event (like heart attack) in the near future. In the " low risk" group, the risks of doing further tests and treatment as the inpatient outweighs the benefits. In many patients in the low risk group for the test of any sort or unnecessary, however he should discuss this further with his general practitioner who will understand the medical and personal backgrounds better. Because we have never declared you" no risk" we would suggest. 1 returning for medical review if you have further episodes of chest pain/arm pain or other concerning symptoms like dizziness, collapse, palpitations or shortness of breath. 2. Following up with your local doctor who will consider the need for further testing and will also ensure that any modifiable risk factors you may have for heart disease are optimally managed. Patient will be discharged in stable condition at the moment discharge patient states , no chest pain Referrals: LONDON ST MD (PCP) Time of Disposition: 14:28 JIM ALEJANDRE MD Sep 11, 2024 11:46
[2024-09-11 11:55] LABS: CREATININE 0.8 mg/dL (0.5-1.3); INR 1.02 (0.85-1.15); PROTHROMBIN TIME 11.4 SEC (9.6-11.6)
[2024-09-11 11:56] LABS: PARTIAL THROMBOPLASTIN TIME 26.8 SEC (26.3-35.5)
[2024-09-11] MEDS: PANTOPrazole 40 MG/VIAL IVP ONE (11:57)
[2024-09-11] MEDS: ASPIRIN 325MG TAB PO ONE (11:57)
[2024-09-11 12:00] LABS: MAGNESIUM 1.8 mg/dL (1.80-2.40)
[2024-09-11 12:21] LABS: B-TYPE NATRIURETIC PEPTIDE 24 pg/mL (0-100)
--- NOTE | 2024-09-11 12:23 | HMCIMG ---
CHEST 1VW HISTORY: Chest pain COMPARISON: 05/05/2020 FINDINGS: A frontal projection of the chest was obtained. Prominent interstitial markings are seen with possible superimposed infiltrates. The heart is borderline enlarged. Degenerative changes are seen. No evidence of aortic calcification is seen. IMPRESSION: 1. Prominent interstitial markings are seen with possible superimposed infiltrates.
[2024-09-11] MEDS: NITROGLYCERIN 0.4 MG SL TAB SL PRN (12:49)
[2024-09-11] MEDS: NITROGLYCERIN 0.4 MG SL TAB SL ONE (12:49)
[2024-09-11 13:22] LABS: ADD UA MICROSCOPIC YES; APPEARANCE,URINE CLEAR (CLEAR); BILIRUBIN,URINE NEGATIVE (NEGATIVE); COLOR,URINE YELLOW (YELLOW); GLUCOSE, URINE (UA) >=1000 mg/dL (NEGATIVE); KETONES,URINE NEGATIVE (NEGATIVE); LEUKOCYTE ESTERASE ,URINE 25 Leu/uL (NEGATIVE); NITRATE,URINE NEGATIVE (NEGATIVE); OCCULT BLOOD,URINE NEGATIVE (NEGATIVE); PROTEIN,URINE NEGATIVE (NEGATIVE); UROBILINOGEN,URINE 0.2 mg/dL (0.2-1.0)
[2024-09-11 13:23] LABS: MUCUS,URINE RARE LPF (None Seen); RBC,URINE 0-1 /HPF (0-1); SQUAMOUS EPITHELIAL CELL,UR RARE /HPF (0-2)
[2024-09-11 13:26] LABS: AMPHET/METH SCREEN,URINE NEGATIVE (NEGATIVE); BARBITURATE SCREEN, URINE NEGATIVE (NEGATIVE); BENZODIAZEPINES SCREEN,URINE NEGATIVE (NEGATIVE); CANNABINOID SCREEN,URINE POSITIVE (NEGATIVE); COCAINE SCREEN,URINE POSITIVE (NEGATIVE); OPIATE SCREEN,URINE NEGATIVE (NEGATIVE); PHENCYCLIDINE SCREEN,URINE NEGATIVE (NEGATIVE)
--- NOTE | 2024-09-11 13:45 | EKG ---
[facility] Test Date: 2024-09-11 Test Time: 11:17:05 Pat Name: BRUCE MCGEE Department: ED Room: Gender: M Woods Warden: [id number] : 1975 Requested By: JIM ALEJANDRE Order Number: [id number] Reading MD: Alex Rosales Measurements Intervals [place] Rate: 65 P: -20 [place]: 176 QRS: 80 QRSD: 112 T: 83 QT: 408 QTc: 424 Interpretive Statements Sinus rhythm Nonspecific T abnormalities, lateral leads ST elev, probable normal early repol pattern Compared to ECG 05/05/2020 10:49:44 T-wave abnormality now present ST (T wave) deviation now present Myocardial infarct finding no longer present Electronically Signed On 09-11-2024 16:15:39 SENIOR TECHNICAL TRAINER by Alex Rosales Please click the below link to view image of tracing.
[2024-09-11 14:50] VITALS: BP 121/76; PULSE 70; RESP 16; TEMP 98.6; O2SAT 98
== END 2024-09-11 15:01 | disposition home or self-care (01) ==
LOC: EDH 11:17
DX: F14.10 Cocaine abuse, uncomplicated (principal); E11.9 Type 2 diabetes mellitus without complications; E78.00 Pure hypercholesterolemia, unspecified; I11.9 Hypertensive heart disease without heart failure; I21.9 Acute myocardial infarction, unspecified; I25.10 Atherosclerotic heart disease of native coronary artery without angina pectoris; Z79.84 Long term (current) use of oral hypoglycemic drugs; Z79.899 Other long term (current) drug therapy
CPT/HCPCS: 99285; 96374; 71045; 82550; 83735; 84484; 80048; 83880; 80305; 85025; 85610; 85730; 36415; 93005; 81001; J2470

== ENCOUNTER 2024-09-13 16:53 | Emergency (ER) | payer OTHER ==
[~2024-09-13] VITALS: Ht 175.3 cm; Wt 81.6 kg
[2024-09-13 20:06] LABS: BASOPHILS # (AUTO) 0.02 K/uL (0.00-0.20); BASOPHILS % (AUTO) 0.3 % (0.0-5.0); EOSINOPHILS # (AUTO) 0.19 K/uL (0.00-0.70); EOSINOPHILS % (AUTO) 2.8 % (0.0-8.0); HEMATOCRIT 46.6 % (42-54); IMMATURE GRANULOCYTE ABSOLUTE 0.01 K/uL (0-1); LYMPHOCYTES # (AUTO) 2.6 K/uL (1.0-4.8); LYMPHOCYTES % (AUTO) 39.1 % (21.0-51.0); MEAN CORPUSCULAR HEMOGLOBIN 29.4 pg (27.0-33.0); MEAN CORPUSCULAR HGB CONC 34.8 g/dL (32.0-36.0); MEAN CORPUSCULAR VOLUME 84.6 fL (79-99); MONOCYTES # (AUTO) 0.5 K/uL (0.1-1.0); MONOCYTES % (AUTO) 6.8 % (3.0-13.0); NEUTROPHILS # (AUTO) 3.4 K/uL (1.8-7.7); NEUTROPHILS % (AUTO) 50.9 % (40.0-77.0); PLATELET COUNT (AUTO) 195 K/uL (130-400); RED BLOOD CELL COUNT(AUTO) 5.51 MIL/uL (4.50-6.20); RED CELL DISTRIBUTION WIDTH 13.2 % (11.0-15.5); WHITE BLOOD COUNT (AUTO) 6.7 K/uL (4.8-10.8)
[2024-09-13 20:38] LABS: CREATININE 0.7 mg/dL (0.5-1.3); POTASSIUM 3.6 mmol/L (3.5-5.1)
--- NOTE | 2024-09-13 21:18 | HMCIMG ---
Exam Type: FOOT COMP 3+VWS LT Clinical Information: r/o osteo, ulceration to left 1st toe Comparison: None Findings and impression: Status post amputation of the second toe at the distal metatarsal level. No fractures or dislocations. No bone destruction to suggest osteomyelitis.
[2024-09-13 21:34] VITALS: TEMP 97.8
[2024-09-13 22:27] VITALS: BP 120/77; PULSE 62; RESP 18; O2SAT 99
[2024-09-13] MEDS ORDERED: acetaMINOPHEN 325 MG TAB PO ONE (22:30)
--- NOTE | 2024-09-13 22:34 | ERN ---
General Chief Complaint: FOOT INJURY/PAIN Stated Complaint: FOOT ULCER Time Seen by MD: 18:40 Time Seen by Midlevel: 18:40 Source: patient History of Present Illness Initial Comments Patient is a 49-year-old male past medical history of substance abuse, uncontrolled diabetes, hyperlipidemia, hypertension, and coronary artery disease presenting to the emergency department with an ulcer to his right foot. The patient states it has been ongoing for three days and has been getting bigger in size. Reports pain to the area. She reports a previous 2nd toe amputation to the same foot. He does report having a history of diabetes but denies taking any medications and does not give a reason for his noncompliance. Allergies: Coded Allergies: No Known Drug Allergies (Verified Allergy, 03/16/12) Home Meds Active Scripts Sulfamethoxazole/Trimethoprim (Bactrim Ds Tablet) 800 Mg-160 Mg Tablet, 1 TAB PO BID for 7 Days, #14 TAB 0 Refills Prov:GORDON AGUILA 09/07/24 Sulfamethoxazole/Trimethoprim (Bactrim Ds Tablet) 800 Mg-160 Mg Tablet, 1 TAB PO BID for 7 Days, #14 TAB 0 Refills Prov:CHUN NAVARRO [employer] AGENT 07/01/24 Reported Medications Alprazolam (Xanax) 2 Mg Tablet, 2 MG PO TID, TAB 11/11/14 Lisinopril (Lisinopril) 30 Mg Tablet, 30 MG PO DAILY, TAB 11/11/14 Rosuvastatin Calcium (Crestor) 10 Mg Tablet, 10 MG PO DAILY, TAB 11/11/14 Metformin HCl (Metformin HCl) 500 Mg Tablet, 500 MG PO BID, TAB 11/11/14 Past Medical History Past Medical History: CAD, Diabetes-Type II, High Cholesterol, Heart Disease, Hypertension Past Surgical History: Other Surgical History Other: LEFT FOOT 2ND TOE AMPUTATION (07/20/2024) ROS Dictation CONSTITUTIONAL: Negative except for HPI HEAD/FACE: Negative except for HPI EENT: Negative except for HPI RESPIRATORY: Negative except for HPI GASTROINTESTINAL/ABDOMINAL: Negative except for HPI GENITOURINARY: Negative except for HPI MUSCULOSKELETAL: Negative except for HPI INTEGUMENTARY: Negative except for HPI NEUROLOGICAL/PSYCH: Negative except for HPI HEMATOLOGIC/LYMPHATIC: Negative except for HPI All Systems Negative, Except as noted above. 13 point review of systems assessed and all negative except for above. Physical Exam Physical Exam Dictation Vital Signs reviewed General Appearance: Alert, oriented x 3, no acute distress, well developed, nourished. Head and Face: non-traumatic. Eyes: PERRL, pink conjunctivas, eyelid no trauma, anterior chamber with arcus senilis. Ears: Pinnas intact and no signs of trauma or erythema ear canals clear and no discharge TM no erythema Nose: No discharge, no bleeding. Oropharynx: Mouth normal, tongue pink, pharynx clear,no erythema, tonsils no exudates, no abscesses noted, mucous membrane moist Neck: Supple, non-tender, no thyromegaly, no masses, no JVD, no bruits Breast:Deferred Chest:No tenderness, no crepitus, no paradoxical movement, no retractions Lungs:Clear, well-ventilated, symmetric, no rales, no wheezing, no rhonchi, no stridor, good breath sounds bilaterally Heart: Regular rate, regular rhythm, no murmur, no gallops Vascular: no peripheral edema, Abdomen: Soft, positive bowel sounds, nondistended, no guarding, nontender, no rebound, no masses no hepatomegaly, no splenomegaly, no Meek's sign, no hernias. Rectal: Deferred Genital: Deferred Neurological: Normal speech, motor function intact, sensory function intact Musculoskeletal: Neck nontender, full range of motion, back nontender, full range of motion, Extremities: nontender, full range of motion Skin: 1 x 1 cm superficial ulceration to the left medial aspect of the 1st, there was no surrounding erythema or induration. No drainable abscess at this time Lymphatic: Deferred Results Laboratory and Microbiology Lab and Micro Result Laboratory Tests Test 09/13/24 20:00 White Blood Count 6.7 K/uL (4.8-10.8) Red Blood Count 5.51 MIL/uL (4.50-6.20) Hemoglobin 16.2 g/dL (14.0-18.0) Hematocrit 46.6 % (42-54) Mean Corpuscular Volume 84.6 fL (79-99) Mean Corpuscular Hemoglobin 29.4 pg (27.0-33.0) Mean Corpuscular Hemoglobin Concent 34.8 g/dL (32.0-36.0) Red Cell Distribution Width 13.2 % (11.0-15.5) Platelet Count 195 K/uL (130-400) Mean Platelet Volume 8.9 fL (7.5-10.5) Immature Granulocyte % (Auto) 0.1 % (0-1) Neutrophils (%) (Auto) 50.9 % (40.0-77.0) Lymphocytes (%) (Auto) 39.1 % (21.0-51.0) Monocytes (%) (Auto) 6.8 % (3.0-13.0) Eosinophils (%) (Auto) 2.8 % (0.0-8.0) Basophils (%) (Auto) 0.3 % (0.0-5.0) Neutrophils # (Auto) 3.4 K/uL (1.8-7.7) Lymphocytes # (Auto) 2.6 K/uL (1.0-4.8) Monocytes # (Auto) 0.5 K/uL (0.1-1.0) Eosinophils # (Auto) 0.19 K/uL (0.00-0.70) Basophils # (Auto) 0.02 K/uL (0.00-0.20) Absolute Immature Granulocyte (auto 0.01 K/uL (0-1) Nucleated Red Blood Cells 0.0 % (0.0-0.19) Erythrocyte Sedimentation Rate 2 MM/HR (0-20) Sodium Level 141 mmol/L (136-145) Potassium Level 3.6 mmol/L (3.5-5.1) Chloride Level 105 mmol/L (101-111) Carbon Dioxide Level 31 mmol/L (21-32) Blood Urea Nitrogen 10 mg/dL (7-18) Creatinine 0.7 mg/dL (0.5-1.3) Glomerular Filtration Rate Calc 112 mL/min (>90) Random Glucose 267 mg/dL (70-105) H Lactic Acid Level 1.7 mmol/L (0.8-2.5) Total Calcium 8.6 mg/dL (8.5-10.1) Procalcitonin < 0.05 ng/mL (0.05-0.5) L Labs Reviewed?: Yes MDM MDM: Patient is a 49-year-old male past medical history of substance abuse, uncontrolled diabetes, hyperlipidemia, hypertension, and coronary artery disease presenting to the emergency department with an ulcer to his left foot. The patient states it has been ongoing for three days and has been getting bigger in size. Reports pain to the area. She reports a previous 2nd toe amputation to the same foot. He does report having a history of diabetes but denies taking any medications and does not give a reason for his noncompliance. On physical examination the patient has a 1 x 1 cm superficial ulceration to the left medial aspect of the 1st, there was no surrounding erythema or induration. No drainable abscess at this time. Septic workup was initiated. Initial vital signs are stable. Patient is afebrile and nontoxic appearing. CBC shows a normal white blood cell count of 6.7. The remainder of her CBC is completely unremarkable. His sed rate is negative. His chemistries are unremarkable. There is a random glucose of 267. Lactic acid and procalcitonin are negative. X-ray of the left foot reveals no destruction of the bone to suggest osteomyelitis. Given the normal x-ray and a negative sed rate osteomyelitis less likely at this time. The patient will need to see a public health specialist outpatient for further evaluation. The patient was not septic at this time. His blood work is unremarkable and he will need to follow up outpatient. Differential diagnosis: Osteomyelitis, uncontrolled diabetes, diabetic foot ulcer There are no social concerns with this patient. Prescription drug management Prescriptions will include: None Medical management and examination interpretation discussions were had by me with other qualified healthcare professionals as indicated for the patient's care. ED Course Orders Procedure Category Date Status Time 12 Lead Ekg Tracing- EKG 09/13/24 Logged Technical 18:51 Cbc With Differential LAB 09/13/24 Complete 18:51 Basic Metabolic Panel LAB 09/13/24 Complete 18:51 Procalcitonin LAB 09/13/24 Complete 18:56 Lactic Acid LAB 09/13/24 Complete 18:56 Erythrocyte LAB 09/13/24 Complete Sedimentation Rate 18:56 Drug Screen Urine LAB 09/13/24 Logged 18:56 Foot Comp 3+Vws Lt RAD 09/13/24 Resulted 20:15 Acetaminophen 325 Tab PHA 09/13/24 Complete (Tylenol 325mg Tab 22:30 Current Medications Medications (Trade) Dose Ordered Sig/Flores Route PRN Reason Start Time Stop Time Status Last Admin Dose Admin Acetaminophen (TYLenol 325MG TAB) 650 mg ONCE ONCE PO 09/13/24 22:30 09/13/24 22:32 DC Vital Signs Date Time Temp Pulse Resp B/P (MAP) Pulse Ox O2 Delivery O2 Flow Rate FiO2 09/13/24 22:27 62 18 120/77 99 Room Air* 0 21 09/13/24 21:34 97.9 69 18 121/67 100 Room Air* 0 21 09/13/24 16:55 97.9 76 16 136/87 96 Room Air [facility] [address] [place], [place] [id number] IMAGING REPORT Signed PATIENT: BRUCE MCGEE MR#: [id number] : 1975 SEX: M AGE: 49 LOCATION: [facility] ORDER 15 STATUS: REG REPORT#: [id number] SERVICE 14 REASON: r/o osteo, ulceration to left 1st toe ORDERING PHYSICIAN: GORDON AGUILA PROCEDURE: FT 3VW LT - FOOT COMP 3+VWS LT Exam Type: FOOT COMP 3+VWS LT Clinical Information: r/o osteo, ulceration to left 1st toe Comparison: None Findings and impression: Status post amputation of the second toe at the distal metatarsal level. No fractures or dislocations. No bone destruction to suggest osteomyelitis. DICTATED BY: FRANDY BARRAZA MD DATE: 09/13/242107 ELECTRONICALLY SIGNED BY: FRANDY BARRAZA MD DATE: 09/13/242117 DX & DISP Disposition: Discharge Departure Impression: Primary Impression: Diabetic ulcer of toe Additional Impression: Uncontrolled diabetes mellitus with hyperglycemia Condition: Stable Additional Instructions: Your blood work today is unremarkable. Your white blood cell count is normal. Your lactic acid, ESR, and procalcitonin are within normal ranges. Your x-ray of the left foot does not show any evidence of osteomyelitis. You need to follow up with the primary care doctor and planning specialist for further evaluation. You need to start taking your medications for diabetes. You may follow up at [facility] Address: [facility] [place] [address] Referrals: CHUY LO MD (PCP) Time of Disposition: 22:30 I have reviewed the case, and I agree with, Diagnosis and Plan I performed the substantive portion of the visit. I have reviewed and personally made and approve the management plan that is documented in the note by myself or the VIV. I acknowledge for responsibility for the patient's management plan. GORDON AGUILA Sep 13, 2024 22:34
--- NOTE | 2024-09-14 07:35 | EKG ---
[facility] Test Date: 2024-09-13 Test Time: 20:10:11 Pat Name: BRUCE MCGEE Department: ED Room: Gender: M Sand Conditioner: [id number] : 1975 Requested By: GORDON AGUILA Order Number: [id number] Reading MD: Eric Moses Measurements Intervals [place] Rate: 62 P: 13 [place]: 180 QRS: 104 QRSD: 116 T: 27 QT: 416 QTc: 423 Interpretive Statements Sinus rhythm Nonspecific intraventricular conduction delay Anterior infarct, old Borderline ST elevation, lateral leads Compared to ECG 09/11/2024 11:17:05 Intraventricular conduction delay now present Myocardial infarct finding now present T-wave abnormality no longer present ST (T wave) deviation still present Electronically Signed On 09-15-2024 06:55:48 INSULATION APPLICATOR by Eric Moses Please click the below link to view image of tracing.
== END 2024-09-13 22:51 | disposition home or self-care (01) ==
LOC: EDH 16:53
DX: E11.621 Type 2 diabetes mellitus with foot ulcer (principal); L97.519 Non-pressure chronic ulcer of other part of right foot with unspecified severity; E11.65 Type 2 diabetes mellitus with hyperglycemia; I25.10 Atherosclerotic heart disease of native coronary artery without angina pectoris; E78.00 Pure hypercholesterolemia, unspecified; I10 Essential (primary) hypertension; Z79.84 Long term (current) use of oral hypoglycemic drugs; Z79.899 Other long term (current) drug therapy
CPT/HCPCS: 36415; 73630; 80048; 83605; 84145; 85025; 85651; 93005; 99284; 99285